=== PATIENT | female | born 1960 | race Caucasian/White ===

== ENCOUNTER → 2017-08-28 | Outpatient (CLI) | payer BC | LOC: MC.RAD 08-01 09:00 | DX: Z12.31 Encounter for screening mammogram for malignant neoplasm of breast (principal); Z98.890 Other specified postprocedural states ==

== ENCOUNTER 2018-06-08 07:12 | Outpatient (CLI) | payer BC ==
[~2018-06-08] VITALS: Ht 175.3 cm; Wt 65.0 kg
[2018-06-08] MEDS ORDERED: LEVOXYL0.05 MG PO (07:25)
[2018-06-08] MEDS ORDERED: PROTONIX 40MG T40 MG PO (07:25)
[2018-06-08] MEDS ORDERED: CENTRUM SILVER1 TAB PO (07:26)
[2018-06-08] MEDS ORDERED: SALAGEN 5MG TAB5 MG PO (07:30)
[2018-06-08 07:53] VITALS: BP 125/67; PULSE 50; TEMP 97.5
[2018-06-08] MEDS ORDERED: CEPHALEXIN500 M1 PO (08:50)
[2018-06-08 09:25] VITALS: BP 129/67; PULSE 53; TEMP 97.8
== END 2018-06-08 09:49 | disposition home or self-care (01) ==
LOC: COL.CAR 07:12
DX: I47.1 Supraventricular tachycardia (principal); R55 Syncope and collapse; I95.9 Hypotension, unspecified; K21.9 Gastro-esophageal reflux disease without esophagitis; M35.00 Sjogren syndrome, unspecified; Z85.828 Personal history of other malignant neoplasm of skin; E03.9 Hypothyroidism, unspecified; Z79.82 Long term (current) use of aspirin; Z82.3 Family history of stroke; Z82.49 Family history of ischemic heart disease and other diseases of the circulatory system; Z80.9 Family history of malignant neoplasm, unspecified
CPT/HCPCS: 27124; C1764

== ENCOUNTER → 2018-06-25 | Outpatient (CLI) | payer BC ==
[~2018-06-25] MED LIST: CENTRUM SILVER1 TAB PO; CEPHALEXIN500 M1 PO; LEVOXYL0.05 MG PO; PROTONIX 40MG T40 MG PO; SALAGEN 5MG TAB5 MG PO
== END ==
LOC: COL.VAS 07:30
DX: M35.01 Sjogren syndrome with keratoconjunctivitis (principal); I34.0 Nonrheumatic mitral (valve) insufficiency; I07.1 Rheumatic tricuspid insufficiency; Z82.49 Family history of ischemic heart disease and other diseases of the circulatory system
CPT/HCPCS: Q9967

== ENCOUNTER → 2018-08-29 | Outpatient (CLI) | payer BC | LOC: MC.RAD 08:20 | DX: Z12.31 Encounter for screening mammogram for malignant neoplasm of breast (principal); Z53.8 Procedure and treatment not carried out for other reasons ==

== ENCOUNTER → 2018-10-03 | Outpatient (CLI) | payer BC | LOC: MC.RAD 10:45 | DX: Z12.31 Encounter for screening mammogram for malignant neoplasm of breast (principal) ==

== ENCOUNTER 2020-06-01 06:18 | Day surgery (SDC) | payer BC ==
[~2020-06-01] VITALS: Ht 175.4 cm; Wt 70.0 kg
[2020-06-01] MEDS ORDERED: VITAMIN D31000 I1 PO (06:43)
[2020-06-01] MEDS ORDERED: CALCIUM WITH D31 CTB (06:46)
[2020-06-01 07:37] VITALS: BP 123/73; PULSE 64; TEMP 98
[2020-06-01 09:00] VITALS: BP 123/73; PULSE 64
[2020-06-01 09:15] VITALS: BP 112/63; PULSE 62
[2020-06-01] MEDS ORDERED: CEPHALEXIN500 M1 PO (09:27)
[2020-06-01 09:30] VITALS: BP 104/68; PULSE 64
[2020-06-01 09:45] VITALS: BP 104/58; PULSE 61
== END 2020-06-01 10:00 | disposition home or self-care (01) ==
LOC: COL.CAR 06:18
DX: T82.897A Other specified complication of cardiac prosthetic devices, implants and grafts, initial encounter (principal); I47.1 Supraventricular tachycardia; R55 Syncope and collapse; I95.9 Hypotension, unspecified; E03.9 Hypothyroidism, unspecified; I05.9 Rheumatic mitral valve disease, unspecified; K21.9 Gastro-esophageal reflux disease without esophagitis; Z85.828 Personal history of other malignant neoplasm of skin; Z79.899 Other long term (current) drug therapy
CPT/HCPCS: J0690; J2250; J3010